=== PATIENT | female | born 1995 | race American Indian/Alaskan Native ===

== ENCOUNTER 2016-10-04 12:43 | Outpatient (CLI) | payer MEDICAID ==
[2016-10-04] MEDS ORDERED: LACTATED RINGERS 500 ML IV ONE (13:04)
--- NOTE | 2016-10-04 15:21 | Ultrasound Report ---
OB LIMITED INDICATION: Spontaneous rupture of membranes. COMPARISON: None similar at this institution. TECHNIQUE: Transabdominal grayscale ultrasound with Doppler interrogation. Gestation: [place] Position: Cephalic Amniotic Fluid: WNL (7-24 cm) ANA LILIA = 12.3 cm Heart Rate: 143 BPM
== END 2016-10-04 15:45 | disposition home or self-care (01) ==
LOC: TRG 12:43
PROVIDERS: ATTEND Obstetrics & Gynecology
DX: O42.92 Full-term premature rupture of membranes, unspecified as to length of time between rupture and onset of labor (principal); O47.03 False labor before 37 completed weeks of gestation, third trimester; Z3A.36 36 weeks gestation of pregnancy
CPT/HCPCS: 59025; 76815

== ENCOUNTER 2016-10-17 14:45 | Outpatient (CLI) | payer MEDICAID ==
[2016-10-17 14:58] VITALS: BP 116/73
[2016-10-17] MEDS ORDERED: TYLENOL PO ONE (15:56)
== END 2016-10-17 16:30 | disposition home or self-care (01) ==
LOC: TRG 14:45
PROVIDERS: ATTEND Obstetrics & Gynecology
DX: O47.1 False labor at or after 37 completed weeks of gestation (principal); Z3A.37 37 weeks gestation of pregnancy
CPT/HCPCS: 59025

== ENCOUNTER 2016-10-21 07:26 | Outpatient (CLI) | payer MEDICAID ==
[2016-10-21 07:50] VITALS: BP 118/77
[2016-10-21] MEDS ORDERED: VISTARIL PO PRN (10:18)
[2016-10-21] MEDS ORDERED: VISTARIL ONE (10:24)
== END 2016-10-21 10:46 | disposition home or self-care (01) ==
LOC: TRG 07:26
PROVIDERS: ATTEND Obstetrics & Gynecology
DX: O47.1 False labor at or after 37 completed weeks of gestation (principal); Z3A.38 38 weeks gestation of pregnancy
CPT/HCPCS: 59025; Q0177

== ENCOUNTER 2016-10-21 12:21 | Inpatient (IN) | payer MEDICAID ==
[2016-10-21] MEDS ORDERED: NARCAN 0.4 MG/1 ML IV PRN (13:00)
[2016-10-21] MEDS ORDERED: MINERAL OIL PO PRN (13:00)
[2016-10-21] MEDS ORDERED: ePHEDrine SULFATE IV PRN (13:00)
[2016-10-21] MEDS ORDERED: LACTATED RINGERS 1,000 ML IV SCH (13:00)
[2016-10-21] MEDS ORDERED: STADOL IV PRN (13:00)
[2016-10-21] MEDS ORDERED: BRETHINE IVP PRN (13:00)
[2016-10-21] MEDS ORDERED: PHENERGAN PO PRN ×2 (13:00→13:04)
[2016-10-21] MEDS ORDERED: PITOCin/NS 20 UNIT/1000ML DRIP 20 UNITS/1,000 ML BAG IV SCH (13:00)
[2016-10-21] MEDS ORDERED: SUBLIMAZE IV PRN (13:00)
[2016-10-21] MEDS ORDERED: XYLOCAINE 2% INFILTRATI ONE (13:00)
[2016-10-21] MEDS ORDERED: PITOCin/NS 30 UNIT/500ML 30 UNITS/500 ML BAG IV SCH ×2 (13:00)
[2016-10-21] MEDS ORDERED: BRETHINE SUB-Q PRN (13:00)
[2016-10-21] MEDS ORDERED: ANUCORT-HC PR PRN (13:04)
[2016-10-21] MEDS ORDERED: PHENERGAN PR PRN (13:04)
[2016-10-21] MEDS ORDERED: BENADRYL PO PRN (13:04)
[2016-10-21] MEDS ORDERED: MILK OF MAGNESIA PO PRN (13:04)
[2016-10-21] MEDS ORDERED: TUCKS PAD TP PRN (13:04)
[2016-10-21] MEDS ORDERED: LANSINOH TP PRN (13:04)
[2016-10-21] MEDS ORDERED: TYLENOL PO PRN (13:04)
[2016-10-21] MEDS ORDERED: PERCOCET 5/325 PO PRN (13:04)
[2016-10-21] MEDS ORDERED: ZOFRAN IV PRN (13:04)
[2016-10-21] MEDS ORDERED: TORADOL IV PRN (13:04)
[2016-10-21] MEDS ORDERED: DULCOLAX PR PRN (13:04)
[2016-10-21] MEDS ORDERED: NORCO 5/325 PO PRN (13:04)
--- NOTE | 2016-10-21 13:12 | History and Physical Report ---
History of Present Illness Date of examination: 10/21/16 Date of admission: 10/21/16 12:21 Chief complaint: came via EMS c/o leaking and contractions History of present illness: This is a a 20 yo at weeks came in via EMS 10/c/+1. She was admitted directly for delivery care uneventful Past History Past Medical History: asthma Past Surgical History: no surgical history Family/Genetic History: hypertension Social history: single. denies: smoking, alcohol abuse, prescription drug abuse - Obstetrical History Expected Date of Delivery: 11/01/16 Actual Gestation: 38 Week(s) 3 Day(s) : 1 Para: 0 Hx # Term Pregnancies: 0 Number of Pregnancies: 0 Spontaneous Abortions: 0 Induced : 1 Number of Living Children: 0 Medications and Allergies Allergies Allergy/AdvReac Type Severity Reaction Status Date / Time No Known Allergies Allergy Verified 10/17/16 14:49 Home Medications Medication Instructions Recorded Confirmed Last Taken Type Amoxicillin [Trimox CAP] 500 mg PO Q8H 10/17/16 10/17/16 10/16/16 22:00 History 1 Pnv with Ca,No.72/Iron/FA 1 each PO DAILY 10/17/16 10/17/16 10/16/16 22:00 History [ Plus Tablet] 1 Active Meds: Active Medications Acetaminophen (Tylenol) 650 mg PO Q4H PRN PRN Reason: Pain MILD(1-3)/Fever >100.5/KAT Acetaminophen/Hydrocodone Bitart ([place] 5/325) 2 each PO Q6H PRN PRN Reason: Pain, Moderate (4-6) Bisacodyl (Dulcolax) 10 mg WV BID PRN PRN Reason: Constipation Butorphanol Tartrate (Stadol) 2 mg IV Q2H PRN PRN Reason: Pain , Severe (7-10) Diphenhydramine HCl (Benadryl) 25 mg PO Q6H PRN PRN Reason: Itching Diphtheria/Tetanus/Acell Pertussis (Boostrix) 0.5 ml IM .ONCE ONE Stop: 10/22/16 13:05 Docusate Sodium (Colace) 100 mg PO BID NOAH Ephedrine Sulfate (Ephedrine Sulfate) 10 mg IV Q2M PRN PRN Reason: Hypotension Stop: 10/21/16 13:05 Fentanyl (Sublimaze) 100 mcg IV Q2H PRN PRN Reason: Labor Pain Hydrocortisone Acetate (Anucort-Hc) 25 mg WV BID PRN PRN Reason: Hemorrhoids Lactated Ringer's (Lactated Ringers) 1,000 mls @ 125 mls/hr IV DIRECT NOAH Oxytocin/Sodium Chloride (Pitocin/Ns 20 Unit/1000ml Drip) 20 units in 1,000 mls @ 125 mls/hr IV DIRECT NOAH Oxytocin/Sodium Chloride (Pitocin/Ns 30 Unit/500ml) 30 units in 500 mls @ 1 mls /hr IV TITR NOAH; 1 MILLIUNITS/MIN PRN Reason: Protocol Oxytocin/Sodium Chloride (Pitocin/Ns 30 Unit/500ml) 30 units in 500 mls @ 0 mls /hr IV TITR NOAH; As Directed PRN Reason: Protocol Ibuprofen (Motrin) 600 mg PO Q6H NOAH Ketorolac Tromethamine (Toradol) 30 mg IV Q6H PRN PRN Reason: Pain, Moderate (4-6) Stop: 10/26/16 13:03 Lidocaine (Xylocaine 2%) 20 ml INFILTRATI ONCE ONE Stop: 10/21/16 13:01 Magnesium Hydroxide (Milk Of Magnesia) 30 ml PO HS PRN PRN Reason: Constipation Measles/Mumps/Rubella Vaccine Live (M-M-R Ii Vaccine) 0.5 ml SUB-Q .ONCE ONE Stop: 10/22/16 13:05 Mineral Oil (Mineral Oil) 30 ml PO QHS PRN PRN Reason: Constipation Multi-Ingredient Ointment (Lansinoh) 1 applic TP PRN PRN PRN Reason: Sore Nipples Multivitamins/Iron/Calcium ( Vitamin) 1 each PO QDAY NOAH Naloxone HCl (Narcan 0.4 Mg/1 Ml) 0.1 mg IV Q2MIN PRN PRN Reason: Res Rate </= 8 or 02 SAT < 92% Ondansetron HCl (Zofran) 4 mg IV Q8H PRN PRN Reason: Nausea And Vomiting Oxycodone/Acetaminophen (Percocet 5/325) 2 tab PO Q6H PRN PRN Reason: Pain, Moderate (4-6) Promethazine HCl (Phenergan) 25 mg PO Q6H PRN PRN Reason: Nausea And Vomiting Promethazine HCl (Phenergan) 25 mg WV Q6H PRN PRN Reason: Nausea And Vomiting Promethazine HCl (Phenergan) 25 mg PO Q6H PRN PRN Reason: Nausea And Vomiting Senna/Docusate Sodium (Senokot S) 2 tab PO Q12H NOAH Sodium Chloride (Sodium Chloride Flush Syringe 10 Ml) 10 ml IV PRN NR Terbutaline Sulfate (Brethine) 0.25 mg SUB-Q ONCE PRN PRN Reason: Hyperstimulation/Hypertonicity Stop: 10/21/16 13:01 Terbutaline Sulfate (Brethine) 0.25 mg IVP ONCE PRN PRN Reason: Hyperstimulation/Hypertonicity Stop: 10/21/16 13:01 Witch Giselle/Glycerin (Tucks Pad) 1 each TP PRN PRN PRN Reason: Hemorrhoid/cleansing/soothing Review of Systems Genitourinary: contractions - Physical Exam Breasts: Positive: deferred Cardiovascular: Regular rate, Normal S1 Lungs: Positive: Clear to auscultation, Normal air movement Abdomen: Positive: normal appearance, soft, normal bowel sounds. Negative: distention, tenderness, guarding Genitourinary (Female): Positive: normal external genitalia, normal perenium Vulva: both: normal Uterus: Positive: normal size, enlarged Anus/Rectum: Positive: normal perianal skin Extremities: Positive: normal. Negative: tenderness Deep Tendon Reflex Grade: Normal +2 - Obstetrical FHR: auscultation normal Cervical Dilatation: 10 Cervical Effacement Percentage: 100 station: +1 Uterine Contraction Pattern: Regular Uterine Tone Measurement Phase: Contraction Uterine Contraction Intensity: Strong/Firm Results All other labs normal. Assessment and Plan A/P IUP 38+ weeks imminent delivery ivf with pitocin for delivery vertex expect vaginal delivery unknonw GBS ( too late for amp)
--- NOTE | 2016-10-21 13:23 | Procedure Note ---
OB Delivery Note - Delivery Date of Delivery: 10/21/16 Surgeon: GARY CALDERON Estimated blood loss: 300cc - Vaginal Delivery position: OA Intrapartum events: none Delivery induction: none Delivery monitor: external FHT, external uterine Route of delivery: Delivery placenta: spontaneous Delivery cord: 3 umbilical vessels Episiotomy: none Delivery laceration: 2nd degree, vaginal side wall Delivery repair: vicryl (2-0 vicryl) Delivery comments: The patient progressed to complete in ambulance at 1215 and has strong desire to push. Active pushing was begun and a normal spontaneous vaginal delivery of a viable male took place at 1229 over an intact perineum in the TANIA position. DeLee suctioning was done on the perineum and only clear fluid was yielded from the mouth and nose. Body was easily delivered and the infant was placed to the maternal abdomen where the cord was clamped x2 and cut by the sister of the mom. The placenta delivered spontaneously at 1235; it was completed in the Schultze fashion and had 3-vessel cord. EBL was 300 mL. Vagina was inspected and a second degree perineal tear was repaired with 2-0 vicryl and bilateral first-degree labial tears were not bleeding and not repaired. Ice was applied to the perineum. The fundus was found to be firm, midline, with light lochia. The placenta was sent to pathology for meconium staining. The infants Apgars were 8, 9 and 9 and the weight was 6 pounds 10ounces. The infant was able to latch on and nurse well. Mother and were left in stable condition.
[2016-10-21] MEDS ORDERED: SODIUM CHLORIDE FLUSH SYRINGE 10 ML IV NR (14:00)
[2016-10-21] MEDS: MOTRIN PO SCH (16:18)
[2016-10-21] MEDS: COLACE PO SCH (21:43)
[2016-10-22] MEDS: MOTRIN PO SCH ×3 (00:25→16:36)
[2016-10-22 01:24] LABS: Basophils % (Auto) 0.1 % (0.0-1.8); Eosinophils % (Auto) 0.1 % (0.0-4.3); Hematocrit 29.1 % (30.3-42.9); Hemoglobin 9.8 gm/dl (10.1-14.3); Mean Corpuscular HGB Conc 34 % (30-34); Mean Corpuscular Hemoglobin 31 pg (28-32); Mean Corpuscular Volume 92 fl (79-97); Platelet Count 154 K/mm3 (140-440); Red Blood Count 3.17 M/mm3 (3.65-5.03); Red Cell Distribution Width 12.9 % (13.2-15.2); White Blood Count 13.1 K/mm3 (4.5-11.0)
[2016-10-22] MEDS: SENOKOT S PO SCH (02:00)
[2016-10-22] MEDS ORDERED: M-M-R II VACCINE SUB-Q ONE (06:00)
[2016-10-22] MEDS ORDERED: BOOSTRIX IM ONE (06:00)
--- NOTE | 2016-10-22 08:27 | Progress Note ---
Assessment and Plan A/P PPD#1 s/p ambulating well bottle feeding bleeding decreaseing vss hct 9.8 PP continue Iron and PNV await RPR type and screen met discharge criteria for discharge Subjective - Subjective Date of service: 10/22/16 Principal diagnosis: s/p Interval history: This is a a 20 yo at weeks came in via EMS 10/c/+1. She was admitted directly for delivery care uneventful Patient reports: appetite normal, voiding normally, pain well controlled, flatus , ambulating normally [place]: doing well, bottle feeding Objective - Vital Signs Latest vital signs: Vital Signs Temp Pulse Resp BP 10/22/16 01:20 98.6 F 86 20 112/59 10/21/16 21:00 98.8 F 70 20 105/55 10/21/16 15:00 98.5 F 88 22 118/64 10/21/16 14:10 93 H 114/69 10/21/16 13:55 93 H 118/70 10/21/16 13:41 80 119/67 10/21/16 13:26 89 115/62 10/21/16 13:09 96 H 116/67 Intake and Output 10/21/16 10/22/16 10/22/16 22:59 06:59 14:59 Intake Total 720 240 Output Total 800 500 Balance -80 -260 Intake: Oral 360 Intake, Free Water 360 240 Output: Urine 800 500 Void 800 500 Other: Total, Intake Amount 360 Total, Output Amount 800 500 - Exam Breasts: Present: normal Cardiovascular: Present: Regular rate, Normal S1 Lungs: Present: Clear to auscultation, Normal air movement Abdomen: Present: normal appearance, soft, normal bowel sounds. Absent: distention, tenderness, guarding Vulva: both: normal Uterus: Present: normal, firm, fundal height below umbilicus (2cm below ). Absent: bogginess, tenderness Deep Tendon Reflex Grade: Normal +2 - Labs Labs: Abnormal lab results 10/22/16 Range/Units 00:58 WBC 13.1 H (4.5-11.0) K/mm3 RBC 3.17 L (3.65-5.03) M/mm3 Hgb 9.8 L (10.1-14.3) gm/dl Hct 29.1 L (30.3-42.9) % RDW 12.9 L (13.2-15.2) % [place] % (Auto) 8.3 H (0.0-7.3) % [place] # 1.1 H (0.0-0.8) K/mm3 Seg Neutrophils % 77.1 H (40.0-70.0) % Seg Neutrophils # 10.1 H (1.8-7.7) K/mm3
--- NOTE | 2016-10-22 08:28 | Discharge Summary ---
Providers - Providers Date of Admission: 10/21/16 12:21 Date of discharge: 10/22/16 Attending physician: GARY CALDERON MD Primary care physician: GARY CALDERON MD Hospitalization Reason for admission: active labor Delivery: Episiotomy: none Laceration: 2nd degree Incision: normal, dry, intact Other procedures: none complications: none Discharge diagnosis: IUP at term delivered baby: male Condition at discharge: Good Disposition: DC-01 TO HOME OR SELFCARE Plan - Discharge Medications Prescriptions: Docusate Sodium [Colace] 100 mg PO BID PRN #30 capsule PRN Reason: constipation Ibuprofen [Motrin] 600 mg PO Q8H PRN #30 tablet PRN Reason: Pain oxyCODONE /ACETAMINOPHEN [Percocet 5/325] 1 tab PO Q6HR PRN #30 tablet PRN Reason: Pain - Provider Discharge Summary Activity: routine, no sex for 6 weeks Diet: routine Instructions: routine Additional instructions: [] Smoking cessation referral if applicable(refer to patient education folder for contact #) [] Refer to [facility]'s [facility] Booklet Call your doctor immediately for: * Fever > 100.5 * Heavy vaginal bleeding ( >1 pad per hour) * Severe persistent headache * Shortness of breath * Reddened, hot, painful area to leg or breast * Drainage or odor from incision. * Keep incision clean and dry at all times and follow doctor's instructions regarding bathing/showering - Follow up plan Follow up: GARY CALDERON MD [Primary Care Provider] - 7 Days STEWART LUCERO MD [Staff Physician] - 11/20/16 Forms: [facility] Discharge Summary, Discharge Signature Page
[2016-10-22] MEDS: PRENATAL VITAMIN PO SCH (10:43)
[2016-10-22] MEDS: COLACE PO SCH (10:43)
[2016-10-23] MEDS: SENOKOT S PO SCH ×2 (00:25→12:18)
[2016-10-23] MEDS: MOTRIN PO SCH ×3 (00:25→12:18)
[2016-10-23] MEDS: COLACE PO SCH ×2 (00:25→10:40)
[2016-10-23] MEDS ORDERED: M-M-R II VACCINE SUB-Q ONE (06:00)
[2016-10-23] MEDS: PRENATAL VITAMIN PO SCH ×2 (10:40→12:18)
[2016-10-23 15:24] VITALS: BP 100/78
== END 2016-10-23 13:00 | disposition home or self-care (01) | DRG 775 ==
LOC: LD 12:21 → OB 16:00
PROVIDERS: ADMIT Obstetrics & Gynecology; ATTEND Obstetrics & Gynecology
PROC: 10E0XZZ Delivery of Products of Conception, External Approach (ICD-10-PCS; principal; 2016-10-21)
PROC: 0KQM0ZZ Repair Perineum Muscle, Open Approach (ICD-10-PCS; 2016-10-21)
DX: O77.0 Labor and delivery complicated by meconium in amniotic fluid (principal); O70.1 Second degree perineal laceration during delivery; Z37.0 Single live birth; Z3A.38 38 weeks gestation of pregnancy
CPT/HCPCS: 36415; 85025; 86592; 86850; 86900; 86901; 90471; 90472; 90707; 90715; J0595; J2590